=== PATIENT | female | born 1970 | race Caucasian/White ===

== ENCOUNTER → 2018-01-13 | Day surgery (SDC) | payer OTHER ==
[2018-01-10 11:41] LABS: BASOPHILS % 0.6 % (0.0-1.0); EOSINOPHILS # (AUTO) 0.1 (0.0-0.4); EOSINOPHILS % 1.9 % (0.0-6.0); HEMATOCRIT 40.8 % (34.2-44.1); HEMOGLOBIN 13.3 g/dL (12.0-16.0); LYMPHOCYTES # (AUTO) 1.5 (1.0-3.2); LYMPHOCYTES % 32.3 % (18.0-39.1); MEAN CORPUSCULAR HEMOGLOBIN 32.4 pg (28-32); MEAN CORPUSCULAR HGB CONC 32.6 g/dL (31-35); MEAN CORPUSCULAR VOLUME 99.5 fL (81-99); MONOCYTES # (AUTO) 0.3 (0.2-0.8); MONOCYTES % 6.8 % (4.4-11.3); NEUTROPHILS # (AUTO) 2.7 (2.1-6.9); PLATELET COUNT 175 x10e3/uL (140-360); RED CELL DISTRIBUTION WIDTH 12.8 % (11.7-14.4)
[2018-01-10 11:56] LABS: ANION GAP 9.8 mmol/L (8-16); BLOOD UREA NITROGEN 14 mg/dL (7-26); BUN/CREATININE RATIO 19 (6-25); CALCIUM 9.3 mg/dL (8.4-10.2); CARBON DIOXIDE 29 mmol/L (22-29); CHLORIDE 103 mmol/L (98-107); CREATININE, SERUM 0.72 mg/dL (0.57-1.11); EST GLOMERULAR FILTRATION RATE > 60 ML/MIN (60-); GLUCOSE 94 mg/dL (74-118); POTASSIUM 3.8 mmol/L (3.5-5.1); SODIUM 138 mmol/L (136-145)
--- NOTE | 2018-01-10 20:52 | Diagnostic Imaging Report ---
PROCEDURE: Frontal and lateral views of the chest. COMPARISON: None. INDICATIONS: PREOPERATIVE CHEST XRAY FOR TOE SURGERY FINDINGS: Lines/tubes: None. Lungs: The lungs are well inflated and clear. There is no evidence of pneumonia or pulmonary edema. Pleura: There is no pleural effusion or pneumothorax. Heart and mediastinum: The heart and the mediastinum are normal. Bones: No acute bony abnormality. Partially visualized orthopedic vlad in the lower thoracic spine IMPRESSION: 1. No acute cardiopulmonary abnormalities. Dre العلي M.D. Dictated by: Dre العلي M.D. on 01/10/2018 at 12:35 Electronically approved by: Dre العلي M.D. on 01/10/2018 at 12:35
[~2018-01-13] MED LIST: BUPIVACAINE HCL 0.5% INJ 30 ML VIAL INJ ONE; CEFAZOLIN SOD 2 GM/D5W 50ML 0 ML IV ONE; CLINDAMYCIN PHOS 900MG/ D5W 50 50 ML IV ONE; DEXAMETHASONE SOD PHOS INJ 4 MG/ML VIAL ONE; FENTANYL CITRATE/PF 100MCG/2 ML INJ ONE; IMITREX25 MG; KETOROLAC TROMETHAMINE 30 MG/ML VIAL ONE; LEXAPRO10 MG PO; LIDOCAINE HCL 2% LOCAL INJ 5 ML SDV VIAL INJ ONE; MIDAZOLAM HCL 2 MG/2 ML VIAL ONE; NEOMYCIN/POLYMYX/BACITR OINT 0.9 GM PKT ONE; ONDANSETRON HCL INJ 2 MG/ML VIAL ONE; PROPOFOL IV EMULSION 10 MG/ML 20 ML VIAL ONE; SEVOFLURANE INHAL SOLN 250 ML PEN BTL ONE; TOPAMAX25 MG PO
--- NOTE | 2018-01-15 20:59 | Operative Report ---
DATE OF PROCEDURE: January 13, 2018 PREOPERATIVE DIAGNOSES 1. Ruptured plantar plate, left foot. 2. Rigidly contracted hammertoe, 2nd digit, left foot. 3. Elongated plantar flexed, 2nd metatarsal, left foot. POSTOPERATIVE DIAGNOSES 1. Ruptured plantar plate, left foot. 2. Rigidly contracted hammertoe, 2nd digit, left foot. 3. Elongated plantar flexed, 2nd metatarsal, left foot. TITLES OF OPERATION 1. Jw osteotomy, shortening osteotomy to 2nd metatarsal of the left foot. 2. Arthrodesis, 2nd digit, left foot. 3. Repair of plantar plate, left foot. ANESTHESIA: General endotracheal. HEMOSTASIS: Left thigh tourniquet, 350 mmHg. PROCEDURE IN DETAIL: The patient brought to the operating room in a mildly sedated state and placed upon the operating table in the supine position. Following induction of general anesthetic, the left lower extremity was elevated to 60 degrees to exsanguinate before inflating the pneumatic thigh tourniquet 350 mmHg for hemostasis. The left lower extremity was placed on the operating table prior to performing the following procedure. Jw osteotomy of the 2nd metatarsal of the left. An approximate 4-cm dorsal linear incision made overlying the dorsal aspect of the 2nd metatarsal phalangeal joint of the left foot. Incision was deepened via sharp and blunt dissection up to the level of the dorsal capsular structure. Care was taken to identify and retract all vital structures encountered. The head of the 2nd metatarsal surgical site and remodeled. Utilizing an oscillating saw, the underlying plantar plate was noted be hypertrophic and had an area of rupture. That area was remodeled and the Jw osteotomy was performed [id number] the 2nd metatarsal head. This was displaced proximally with the proper device and the head was held in place with 2 cortical bone screws. The distal aspect was appropriately remodeled with oscillating saw rotary bur, irrigated with copious amounts of sterile saline solution. Deep closure with 3-0 Vicryl, subcutaneous closure with 4-0 Vicryl, and skin closure with 4-0 nylon. Attention was then directed to the 2nd digit for arthrodesis, 2nd digit left foot. Linear incision made over the proximal interphalangeal joint. Incision was deepened via sharp and blunt dissection at the level of dorsal capsular structure. Care was taken to identify and retract all vital structures. Encountered the head of the proximal phalanx of 2nd digit was delivered from the surgical site and remodeled utilizing the appropriate cup and cone reamer. This having been accomplished, a digital fusion device was used with a proper implant into the 2nd digit, which has stabilized, irrigated, and closed over with 3-0 Vicryl, 4-0 nylon. The areas of surgery were then blocked with 0.5 Marcaine, Decadron [place]. Human tissue allograft was applied to the plantar aspect of the 2nd metatarsal phalangeal joint to supplement the repaired plantar plate. Released the pneumatic thigh tourniquet, showed a normal hyperemic flush to all digits of the left foot. The patient left the operating room with vital signs stable in apparent satisfactory condition, having tolerated both anesthetic procedure very well. Job#: [id number]
== END | disposition home or self-care (01) ==
LOC: OR 06:45
PROVIDERS: ATTEND Podiatrist Foot Surgery
DX: M21.272 Flexion deformity, left ankle and toes (principal); M20.42 Other hammer toe(s) (acquired), left foot; M24.575 Contracture, left foot; Z88.0 Allergy status to penicillin; Z01.810 Encounter for preprocedural cardiovascular examination; Z01.812 Encounter for preprocedural laboratory examination; Z01.818 Encounter for other preprocedural examination
CPT/HCPCS: 28285; 28308; 28899; 36415; 71046; 80048; 81025; 85025; 93005; C1713; C1762; J1100; J1885; J2001; J2250; J2405; 76000